=== PATIENT | female | born 1985 ===

== ENCOUNTER 2019-11-05 21:57 | Inpatient (IN) ==
[2019-11-05] MEDS ORDERED: Dinoprostone 10 MG VAG.SUPP VAGINAL ONE (22:47)
[2019-11-05] MEDS ORDERED: Lactated Ringers 1000 ml BAG 1,000 ML IV ONE (22:47)
[2019-11-05] MEDS ORDERED: Lactated Ringers 1000 ml BAG 1,000 ML IV SCH (23:00)
[2019-11-05 23:32] LABS: Urine Benzodiazepine Screen None Detected (None Detect); Urine Cannabinoids Screen None Detected (None Detect); Urine Opiates Screen None Detected (None Detect)
[2019-11-06] MEDS: Oxytocin in LR 20 UNITS/1,000 ML BAG IVPB SCH ×2 (17:31→21:17)
[2019-11-06 17:37] LABS: ABS Eosinophils 0.1 10^3/ul (0-0.6); ABS Monocytes 0.4 10^3/ul (0-0.8); ABS Neutrophils 5.2 10^3/ul (1.5-7.7); Eosinophil % 0.9 %; Hematocrit 36 % (35-47); Hemoglobin 12.2 g/dL (12.0-16.0); Lymphocyte % 15.4 %; Mean Corpuscular HGB Conc 34 g/dL (31-36); Mean Corpuscular Hemoglobin 30 pg (27-31); Mean Corpuscular Volume 88 fL (80-97); Platelet Count 164 10^3/uL (150-450); Red Blood Count 4.05 10^6 /uL (3.70-4.87); Red Cell Distribution Width 16 % (10-15); White Blood Count 6.7 10^3/uL (3.5-10.8)
[2019-11-06] MEDS ORDERED: OBEPIDURAL 250 ML EPIDURAL ONE (19:59)
[2019-11-06] MEDS ORDERED: EPHEDrine (Pressors) 50 MG/ML VIAL IV PUSH PRN ×2 (20:59)
[2019-11-06] MEDS ORDERED: Sodium Citrate/Citric Acid LIQ 15 ML UDC PO PRN (20:59)
[2019-11-06] MEDS ORDERED: Phenylephrine 40 mcg/mL 10mL (400mcg) SYRINGE IV PUSH PRN ×2 (20:59)
[2019-11-06] MEDS ORDERED: Lactated Ringers 1000 ml BAG 1,000 ML IV ONE (20:59)
[2019-11-06] MEDS ORDERED: Lactated Ringers 1000 ml BAG 500 ML IV PRN ×2 (20:59)
[2019-11-06] MEDS ORDERED: Lactated Ringers 1000 ml BAG 1,000 ML IV SCH (21:00)
[2019-11-06] MEDS ORDERED: OBEPIDURAL 250 ML EPIDURAL SCH (21:00)
[2019-11-07] MEDS ORDERED: ceFOXitin 2 GM IVPREMIX 2 GM/50 ML BAG ONE (09:35)
[2019-11-07] MEDS ORDERED: ceFOXitin 2 GM IVPREMIX 2 GM/50 ML BAG IVPB ONE (09:42)
[2019-11-07] MEDS ORDERED: fentaNYL 100 mcg/2 ml 50 MCG/ML VIAL ONE (10:07)
[2019-11-07] MEDS ORDERED: Chloroprocaine 3% 20 ml VIAL ONE ×2 (10:11→10:48)
[2019-11-07] MEDS ORDERED: Oxytocin 10 UNITS/ML 1 ML VIAL ONE ×2 (10:25→10:46)
[2019-11-07] MEDS ORDERED: Morphine PF AMP (0.5MG/ML) 5 MG/10 ML AMP ONE (10:29)
[2019-11-07] MEDS ORDERED: Phenylephrine 40 mcg/mL 10mL (400mcg) SYRINGE ONE ×2 (10:30→10:42)
[2019-11-07] MEDS ORDERED: Ondansetron 4 mg VIAL 2 MG/ML 2 ml VIAL IV PRN (10:54)
[2019-11-07] MEDS ORDERED: Naloxone 0.4 mg VIAL 0.4 mg/ml 1 ml VIAL IV PRN ×2 (10:54→10:57)
[2019-11-07] MEDS ORDERED: Witch Hazel PAD JAR TOPICAL PRN (11:31)
[2019-11-07] MEDS ORDERED: Glycerin ADULT 2.4 gm SUPP PR PRN (11:31)
[2019-11-07] MEDS: fentaNYL 100 mcg/2 ml 50 MCG/ML VIAL IV PRN ×2 (11:54→12:15)
[2019-11-07] MEDS ORDERED: Lactated Ringers 1000 ml BAG 1,000 ML IV SCH (12:00)
[2019-11-07] MEDS: Dibucaine 1% OINT 28.35 GM TUBE PR PRN (23:10)
[2019-11-08 07:09] LABS: ABS Eosinophils 0.1 10^3/ul (0-0.6); ABS Lymphocytes 1.2 10^3/ul (1.0-4.8); ABS Monocytes 0.5 10^3/ul (0-0.8); ABS Neutrophils 12.9 10^3/ul (1.5-7.7); Eosinophil % 0.7 %; Hematocrit 28 % (35-47); Hemoglobin 9.4 g/dL (12.0-16.0); Lymphocyte % 8.2 %; Mean Corpuscular HGB Conc 34 g/dL (31-36); Mean Corpuscular Hemoglobin 30 pg (27-31); Mean Corpuscular Volume 88 fL (80-97); Mean Platelet Volume 8.6 fL (7.4-10.4); Platelet Count 142 10^3/uL (150-450); Red Blood Count 3.12 10^6 /uL (3.70-4.87); Red Cell Distribution Width 16 % (10-15); White Blood Count 14.8 10^3/uL (3.5-10.8)
[2019-11-09] MEDS: Dibucaine 1% OINT 28.35 GM TUBE PR PRN (13:19)
[2019-11-10 08:06] VITALS: BP 122/77
== END 2019-11-10 13:55 | disposition home or self-care (01) | DRG 788 ==
LOC: MCHOBOUT 21:57 → MCHOB 23:29
PROVIDERS: ADMIT Obstetrics & Gynecology; ATTEND Obstetrics & Gynecology